=== PATIENT | female | born 1975 | race Two or more races ===

== ENCOUNTER 2017-06-24 21:58 | Emergency (ER) | payer MEDICAID, OTHER ==
[~2017-06-24] VITALS: Ht 167.6 cm; Wt 81.8 kg
[2017-06-24 22:13] LABS: GLUCOSE,POINT OF CARE 165 MG/DL (70-110)
[2017-06-24] MEDS ORDERED: HALOPERIDOL 5 MG TABLET PO ONE (22:30)
[2017-06-24] MEDS ORDERED: LORazepam 2 MG TABLET PO ONE (22:30)
[2017-06-24] MEDS ORDERED: DiphenhydrAMINE HCL 25 MG CAPSULE PO ONE (22:30)
[2017-06-24 23:10] VITALS: BP 120/74
== END 2017-06-24 23:45 | disposition home or self-care (01) ==
LOC: EMS 22:00
DX: F20.0 Paranoid schizophrenia (principal)
CPT/HCPCS: 82962; 99284

== ENCOUNTER 2017-09-08 08:29 | Emergency (ER) | payer OTHER ==
[~2017-09-08] VITALS: Ht 160 cm; Wt 81.8 kg
[2017-09-08] MEDS ORDERED: ARIP2 PO (08:37)
[2017-09-08] MEDS ORDERED: TRAZ-144 PO (08:37)
[2017-09-08] MEDS ORDERED: LISI-660 PO (08:37)
[2017-09-08] MEDS ORDERED: EMTR1TAB12 (08:37)
[2017-09-08] MEDS ORDERED: PARO10TA89 PO (08:37)
[2017-09-08] MEDS ORDERED: METF500T4 PO (08:37)
[2017-09-08 08:42] LABS: GLUCOSE,POINT OF CARE 133 MG/DL (70-110)
[2017-09-08 13:39] VITALS: BP 111/74
== END 2017-09-08 13:40 | disposition home or self-care (01) ==
LOC: EMS 08:32
DX: N64.4 Mastodynia (principal)
CPT/HCPCS: 82962; 99283